=== PATIENT | male | born 1945 | race Caucasian/White ===

== ENCOUNTER 2016-10-20 21:23 | Emergency (ER) | payer OTHER ==
[~2016-10-20] VITALS: Ht 182.9 cm; Wt 103.8 kg
[~2016-10-20 21:23] MED LIST: ASPEC81 PO; ATORVASTATIN PO; IMDSR30 PO; TPRSR50 PO; ZNTT/150 PO
[2016-10-20 21:30] VITALS: TEMP 36.7; Ht 182.9 cm; Wt 103.8 kg
--- NOTE | 2016-10-20 21:44 | EMERGENCY ROOM VISIT NOTE ---
History Report prepared by Fatoumata: Shayne Fernandez Under the Supervision of: Dr. Papi Weiss D.O. First contact with patient: 21:31 Chief Complaint: CHEST PAIN Stated Complaint: CHEST PAIN History of Present Illness The patient is a 71 year old male who presents to the Emergency Room for chest pains that the patient states are resolved at this time. The patient notes that he was just getting out of the shower at 1930, two hours prior to arrival when he became diaphoretic and experienced pain in his chest. When his chest pain onset it was a 7/10 in severity. He notes he currently has no chest pain at all. He took 2 Nitroglycerin tablets and Aspirin shortly after his pain began. The patient notes a similar episode this past April, 6 months ago. 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 A total of ten systems were reviewed and were otherwise negative. Past Medical & Surgical Medical Problems: (1) Atrial flutter Surgical Problems: (1) Hx of CABG Family History No pertinent family history secondary to age. Social History Smoking Status: Former Smoker Alcohol Use: none Drug Use: none Marital Status: Housing Status: lives with family Occupation Status: retired Current/Historical Medications Scheduled Aspirin (Aspirin EC Low Dose), 81 MG PO QAM Isosorbide Mononitrate (Isosorbide Mononitrate ER), 30 MG PO QAM Metoprolol Succinate (Metoprolol Succinate ER), 50 MG PO QAM Nitroglycerin (Nitrostat), 0.3 MG UT PRN Ranitidine (Zantac), 150 MG PO DAILY [Atorvastatin], 0.5 TAB PO DAILY Allergies Coded Allergies: No Known Allergies (Unverified , 02/09/16) Physical Exam Vital Signs Date Time Temp Pulse Resp B/P Pulse Ox O2 Delivery O2 Flow Rate FiO2 10/20/16 23:17 100 16 101/79 97 Room Air 10/20/16 22:33 101 20 96/67 96 Room Air 10/20/16 22:30 95 Room Air 10/20/16 21:40 95 Room Air 10/20/16 21:39 102 10/20/16 21:30 36.7 114 18 107/67 93 Room Air Physical Exam GENERAL: Awake, alert, well-appearing, in no distress HENT: Normocephalic, atraumatic. Oropharynx unremarkable. EYES: Normal conjunctiva. Sclera non-icteric. NECK: Supple. No nuchal rigidity. FROM. No JVD. RESPIRATORY: Clear to auscultation. CARDIAC: Regular rate, Irregularly irregular rhythm. Extremities warm and well perfused. Pulses equal. ABDOMEN: Soft, non-distended. No tenderness to palpation. No rebound or guarding. No masses. RECTAL: Deferred. MUSCULOSKELETAL: Chest examination reveals no tenderness. The back is symmetrical on inspection without obvious abnormality. There is no CVA tenderness to palpation. No joint edema. LOWER EXTREMITIES: Calves are equal size bilaterally and non-tender. No edema. No discoloration. NEURO: Normal sensorium. No sensory or motor deficits noted. SKIN: No rash or jaundice noted. Medical Decision & Procedures ER Provider Diagnostic Interpretation: X ray results as stated below per my interpretation and radiologist interpretation. Other radiology results as stated below per my review and radiologist interpretation CHEST ONE VIEW PORTABLE HISTORY: Atypical CHEST PAIN COMPARISON: Chest 02/09/2016. FINDINGS: The heart remains mildly enlarged. No pleural effusions. No pneumothorax. No focal lung consolidations. Mild interstitial thickening is likely chronic. This remains unchanged. No evidence for pulmonary edema. IMPRESSION: No significant change compared to the prior study. No acute process. Stable mild cardiomegaly and chronic interstitial thickening. Electronically signed by: Juvencio Vergara M.D. 10/20/2016 10:09 PM Dictated Date/Time: 10/20/2016 10:01 PM Laboratory Results 10/20/16 22:10 Red Blood Count 4.68, Mean Corpuscular Volume 88.0, Mean Corpuscular Hemoglobin 29.9, Mean Corpuscular Hemoglobin Concent 34.0, Mean Platelet Volume 9.0, Neutrophils (%) (Auto) 80.4, Lymphocytes (%) (Auto) 11.0, Monocytes (%) (Auto) 6.9, Eosinophils (%) (Auto) 1.0, Basophils (%) (Auto) 0.3, Neutrophils # (Auto) 6.15, Lymphocytes # (Auto) 0.84, Monocytes # (Auto) 0.53, Eosinophils # (Auto) 0.08, Basophils # (Auto) 0.02 5/21/17 21:10 Test 10/20/16 21:10 10/20/16 22:10 10/20/16 22:30 Prothrombin Time 10.7 SECONDS (9.0-12.0) Prothromb Time International Ratio 1.0 (0.9-1.1) Anion Gap 11.0 mmol/L (3-11) Est Creatinine Clear Calc Drug Dose 55.5 ml/min Estimated GFR () 53.1 Estimated GFR (Non- 45.9 BUN/Creatinine Ratio 12.2 (10-20) Calcium Level 8.8 mg/dl (8.5-10.1) Total Bilirubin 0.6 mg/dl (0.2-1) Direct Bilirubin mg/dl (0-0.2) Aspartate Amino Transf (AST/SGOT) U/L (15-37) Alanine Aminotransferase (ALT/SGPT) 30 U/L (12-78) Alkaline Phosphatase 109 U/L (45-117) Total Protein 7.9 gm/dl (6.4-8.2) Albumin 3.8 gm/dl (3.4-5.0) Chemistry Specimen Hemolysis White Blood Count 7.65 K/uL (4.8-10.8) Red Blood Count 4.68 M/uL (4.7-6.1) Hemoglobin 14.0 g/dL (14.0-18.0) Hematocrit 41.2 % (42-52) Mean Corpuscular Volume 88.0 fL (80-100) Mean Corpuscular Hemoglobin 29.9 pg (25-34) Mean Corpuscular Hemoglobin Concent 34.0 g/dl (32-36) Platelet Count 127 K/uL (130-400) Mean Platelet Volume 9.0 fL (7.4-10.4) Neutrophils (%) (Auto) 80.4 % Lymphocytes (%) (Auto) 11.0 % Monocytes (%) (Auto) 6.9 % Eosinophils (%) (Auto) 1.0 % Basophils (%) (Auto) 0.3 % Neutrophils # (Auto) 6.15 K/uL (1.4-6.5) Lymphocytes # (Auto) 0.84 K/uL (1.2-3.4) Monocytes # (Auto) 0.53 K/uL (0.11-0.59) Eosinophils # (Auto) 0.08 K/uL (0-0.5) Basophils # (Auto) 0.02 K/uL (0-0.2) RDW Standard Deviation 44.1 fL (36.4-46.3) RDW Coefficient of Variation 13.6 % (11.5-14.5) Immature Granulocyte % (Auto) 0.4 % Immature Granulocyte # (Auto) 0.03 K/uL (0.00-0.02) Bedside Troponin I 0.020 ng/ml (0-0.045) Laboratory results reviewed by me ECG Indication: chest pain Rate (beats per minute): 100 Rhythm: atrial fibrillation Findings: nonspecific-ST abn, other (LAD) ED Course 2136: The patient was evaluated in room A3. A complete history and physical exam was performed. 2308: I reevaluated the patient at this time and suggested that he stay as an inpatient for cardiac rule-out. He denies this suggestion [facility] The patient will leave the hospital against medical advice. Medical Decision Differential diagnosis: Etiologies such as cardiac ischemia, aortic dissection, pulmonary embolism, pneumonia, pneumothorax, musculoskeletal, infections, pericarditis, myocarditis , esophageal rupture, gastrointestinal, as well as others were entertained. Patient resting in no distress patient does not want to be admitted. I've advised the patient that he should be admitted for his cardiac chest pain. Patient states that he wants to go to the [place] tomorrow. Patient states he will return if he feels worse. Patient was offered admission. Patient was also offered inability to return however did sign him out AGAINST MEDICAL ADVICE and told him that he would be risking a slight loss of quality of life for even potentially due to cardiac issue Impression Primary Impression: Anginal chest pain at rest Scribe Attestation The scribe's documentation has been prepared under my direction and personally reviewed by me in its entirety. I confirm that the note above accurately reflects all work, treatment, procedures, and medical decision making performed by me. Departure Information Dispostion Against Medical Advice Referrals No Doctor, Assigned (PCP) Patient Instructions Chest Pain - [facility], My [facility] [place]
[2016-10-20 22:00] LABS: PROTHROMBIN TIME (PATIENT) 10.7 SECONDS (9.0-12.0)
--- NOTE | 2016-10-20 22:11 | DIAGNOSTIC IMAGING REPORT ---
CHEST ONE VIEW PORTABLE HISTORY: Atypical CHEST PAIN COMPARISON: Chest 02/09/2016. FINDINGS: The heart remains mildly enlarged. No pleural effusions. No pneumothorax. No focal lung consolidations. Mild interstitial thickening is likely chronic. This remains unchanged. No evidence for pulmonary edema. IMPRESSION: No significant change compared to the prior study. No acute process. Stable mild cardiomegaly and chronic interstitial thickening. Electronically signed by: Juvencio Vergara M.D. 10/20/2016 10:09 PM Dictated Date/Time: 10/20/2016 10:01 PM
[2016-10-20] MEDS ORDERED: NTRSL3 UT (22:24)
[2016-10-20 22:25] LABS: BASO % 0.3 %; BASO ABS # 0.02 K/uL (0-0.2); COMPLETE YES; HEMATOCRIT 41.2 % (42-52); IG% 0.4 %; LYMPH ABS # 0.84 K/uL (1.2-3.4); MEAN CORPUSCULAR HEMOGLOBIN 29.9 pg (25-34); MONO % 6.9 %; NEUT % 80.4 %; PLATELET COUNT 127 K/uL (130-400); RED BLOOD COUNT 4.68 M/uL (4.7-6.1); WHITE BLOOD COUNT 7.65 K/uL (4.8-10.8)
[2016-10-20 22:30] VITALS: O2SAT 95
[2016-10-20 22:56] LABS: ALKALINE PHOSPHATASE 109 U/L (45-117); ALT/SGPT 30 U/L (12-78); BLOOD UREA NITROGEN 18 mg/dl (7-18); BUN/CREATININE RATIO 12.2 (10-20); CALCIUM 8.8 mg/dl (8.5-10.1); CARBON DIOXIDE 22 mmol/L (21-32); CHLORIDE 106 mmol/L (98-107); GLUCOSE 124 mg/dl (70-99); SODIUM 139 mmol/L (136-145)
[2016-10-20 23:17] VITALS: BP 101/79; PULSE 100; O2SAT 97
== END 2016-10-20 23:29 | disposition left against medical advice (07) ==
LOC: EDBD 21:23 → C.EDA 21:25
DX: R07.89 Other chest pain (principal); I48.92 Unspecified atrial flutter; Z95.1 Presence of aortocoronary bypass graft; Z87.891 Personal history of nicotine dependence; Z79.82 Long term (current) use of aspirin; Z79.899 Other long term (current) drug therapy